=== PATIENT | female | born 1955 | race Caucasian/White ===

== ENCOUNTER 2016-11-26 15:14 | Emergency (ER) | payer OTHER ==
[~2016-11-26] VITALS: Ht 172.7 cm; Wt 98.0 kg
[~2016-11-26 15:14] MED LIST: ASPIRIN; BLOOD PRESURE; CALCIUM; CHOLESTEROL M; ESTROGEN; OMEPRAZOLE20 MG PO; PROZAC; RITALIN; TESSALON200 MG PO; VIT D; ZITHROMAX250 MG PO; [UNRECOGNIZED DRUG - OTHER]; potassium; vit b12
[2016-11-26 15:25] VITALS: BP 114/89
== END 2016-11-26 18:41 | disposition left against medical advice (07) ==
LOC: EME 15:14
DX: R69 Illness, unspecified (principal); Z53.21 Procedure and treatment not carried out due to patient leaving prior to being seen by health care provider